=== PATIENT | female | born 1935 | race Two or more races ===

== ENCOUNTER 2017-11-26 06:26 | Emergency (ER) | payer OTHER ==
[~2017-11-26] VITALS: Ht 157.5 cm; Wt 63.5 kg
[2017-11-26] MEDS ORDERED: LOSARTAN POTASS25 MG (06:38)
[2017-11-26] MEDS ORDERED: SYNTHROID50 MCG (06:39)
[2017-11-26] MEDS ORDERED: GLEEVEC100 MG (06:39)
[2017-11-26] MEDS ORDERED: NEURONTIN300 MG PO (11:11)
== END 2017-11-26 13:40 | disposition home or self-care (01) ==
LOC: ER 06:26
DX: M79.605 Pain in left leg (principal); M54.42 Lumbago with sciatica, left side

== ENCOUNTER → 2017-11-26 | Emergency (ER) | payer OTHER ==
[~2017-11-26] VITALS: Ht 157.5 cm; Wt 65.8 kg
[~2017-11-26] MED LIST: GLEEVEC100 MG; LOSARTAN POTASS25 MG; NEURONTIN300 MG PO; SYNTHROID50 MCG
== END | disposition home or self-care (01) ==
LOC: ER 21:16
DX: M54.32 Sciatica, left side (principal)

== ENCOUNTER 2019-06-03 15:49 | Emergency (ER) | payer OTHER ==
[~2019-06-03] VITALS: Ht 157.5 cm; Wt 61.2 kg
[2019-06-03] MEDS ORDERED: ATORVASTATIN CA10 MG (17:44)
[2019-06-03] MEDS ORDERED: CIPRO500 MG (17:44)
[2019-06-03] MEDS ORDERED: SYNTHROID75 MCG (17:45)
[2019-06-03] MEDS ORDERED: SPRYCEL70 MG (17:45)
[2019-06-03] MEDS ORDERED: NORVASC2.5 M1 (17:46)
[2019-06-03] MEDS ORDERED: COZAAR50 MG (17:46)
[2019-06-03] MEDS ORDERED: REFRESH TEARS EYE (17:47)
== END 2019-06-03 22:17 | disposition home or self-care (01) ==
LOC: ER 15:49
DX: R06.02 Shortness of breath (principal)